=== PATIENT | male | born 1965 | race Two or more races ===

== ENCOUNTER → 2018-03-04 06:48 | Outpatient (CLI) | payer OTHER | END | disposition home or self-care (01) | LOC: RAD 06:48 | DX: M17.11 Unilateral primary osteoarthritis, right knee (principal); M17.12 Unilateral primary osteoarthritis, left knee ==

== ENCOUNTER 2018-03-04 08:21 | Outpatient (CLI) | payer OTHER | END 2018-03-04 08:34 | disposition home or self-care (01) | LOC: SONOGRAMA 08:21 | DX: E04.0 Nontoxic diffuse goiter (principal); E04.2 Nontoxic multinodular goiter ==

== ENCOUNTER 2018-04-11 06:44 | Emergency (ER) | payer OTHER ==
[~2018-04-11] VITALS: Ht 177.8 cm; Wt 78.5 kg
== END 2018-04-11 08:39 | disposition home or self-care (01) ==
LOC: ER 06:44
DX: S90.415A Abrasion, left lesser toe(s), initial encounter (principal); W45.8XXA Other foreign body or object entering through skin, initial encounter; Y93.89 Activity, other specified; Y92.098 Other place in other non-institutional residence as the place of occurrence of the external cause; Y99.8 Other external cause status

== ENCOUNTER 2018-09-23 07:18 | Outpatient (CLI) | payer OTHER | END 2018-09-23 07:31 | disposition home or self-care (01) | LOC: SONOGRAMA 07:18 → MAMO-SONO 07:45 | DX: M54.5 Low back pain (principal); E03.8 Other specified hypothyroidism; E55.9 Vitamin D deficiency, unspecified; I10 Essential (primary) hypertension; G62.89 Other specified polyneuropathies; M81.0 Age-related osteoporosis without current pathological fracture; R33.9 Retention of urine, unspecified; N40.1 Benign prostatic hyperplasia with lower urinary tract symptoms ==

== ENCOUNTER → 2018-09-28 | Outpatient (CLI) | payer OTHER | END | disposition home or self-care (01) | LOC: NUCLEAR 13:00 | DX: M81.0 Age-related osteoporosis without current pathological fracture (principal) ==

== ENCOUNTER 2020-03-01 07:12 | Outpatient (CLI) | payer OTHER | END 2020-03-01 07:27 | disposition home or self-care (01) | LOC: SONOGRAMA 07:12 | PROVIDERS: ATTEND Urology | DX: R97.20 Elevated prostate specific antigen [PSA] (principal) ==

== ENCOUNTER 2022-09-04 13:59 | Outpatient (CLI) | payer OTHER | END 2022-09-04 14:18 | disposition home or self-care (01) | LOC: TOM 13:59 | PROVIDERS: ATTEND Specialist | DX: C61 Malignant neoplasm of prostate (principal) ==

== ENCOUNTER 2022-10-22 08:18 | Outpatient (CLI) | payer OTHER | END 2022-10-22 08:26 | disposition home or self-care (01) | LOC: NUCLEAR 08:18 | PROVIDERS: ATTEND Urology | DX: C61 Malignant neoplasm of prostate (principal) ==

== ENCOUNTER 2023-01-06 14:43 | Emergency (ER) | payer OTHER ==
[~2023-01-06] VITALS: Ht 175.3 cm; Wt 76.2 kg
== END 2023-01-06 21:46 | disposition home or self-care (01) ==
LOC: ER 14:43
DX: C61 Malignant neoplasm of prostate (principal); R31.9 Hematuria, unspecified

== ENCOUNTER 2023-01-10 08:01 | Emergency (ER) | payer OTHER ==
[~2023-01-10] VITALS: Ht 175.3 cm; Wt 76.2 kg
== END 2023-01-10 12:02 | disposition home or self-care (01) ==
LOC: ER 08:01
DX: R31.0 Gross hematuria (principal); N40.0 Benign prostatic hyperplasia without lower urinary tract symptoms

== ENCOUNTER 2023-04-21 07:48 | Emergency (ER) | payer OTHER ==
[~2023-04-21] VITALS: Ht 175.3 cm; Wt 75.7 kg
[2023-04-21] MEDS ORDERED: MEDROLPACK PO (09:37)
== END 2023-04-21 09:52 | disposition home or self-care (01) ==
LOC: ER 07:48
DX: M17.0 Bilateral primary osteoarthritis of knee (principal)

== ENCOUNTER 2023-05-09 17:33 | Outpatient (CLI) | payer OTHER ==
[~2023-05-09 17:33] MED LIST: MEDROLPACK PO
== END 2023-05-09 17:42 | disposition home or self-care (01) ==
LOC: LAB 17:33
PROVIDERS: ATTEND Urology
DX: R97.20 Elevated prostate specific antigen [PSA] (principal)

== ENCOUNTER 2023-05-14 07:23 | Outpatient (CLI) | payer OTHER | END 2023-05-14 08:07 | disposition home or self-care (01) | LOC: SONOGRAMA 07:23 | PROVIDERS: ATTEND Urology | DX: C61 Malignant neoplasm of prostate (principal); D29.1 Benign neoplasm of prostate ==

== ENCOUNTER 2024-02-13 08:23 | Emergency (ER) | payer OTHER ==
[~2024-02-13] VITALS: Ht 177.8 cm; Wt 78.9 kg
[2024-02-13] MEDS ORDERED: TAMSULOSIN HCL0.4 MG PO (08:53)
[2024-02-13] MEDS ORDERED: RAYOS1 MG (08:54)
[2024-02-13] MEDS ORDERED: ZYTIGA250 MG PO (08:54)
[2024-02-13] MEDS ORDERED: LUPRON DEPOT3.75 M1 IM (08:55)
[2024-02-13] MEDS ORDERED: CIALIS5 MG PO (08:55)
== END 2024-02-13 09:46 | disposition home or self-care (01) ==
LOC: ER 08:25
DX: H01.009 Unspecified blepharitis unspecified eye, unspecified eyelid (principal)

== ENCOUNTER 2024-03-17 10:02 | Outpatient (CLI) | payer OTHER ==
[~2024-03-17 10:02] MED LIST changes: +CIALIS5 MG PO; +LUPRON DEPOT3.75 M1 IM; +RAYOS1 MG; +TAMSULOSIN HCL0.4 MG PO; +ZYTIGA250 MG PO
== END 2024-03-17 10:13 | disposition home or self-care (01) ==
LOC: SONOGRAMA 10:02
PROVIDERS: ATTEND Urology
DX: R33.9 Retention of urine, unspecified (principal)

== ENCOUNTER 2024-08-30 07:43 | Emergency (ER) | payer OTHER ==
[~2024-08-30] VITALS: Ht 177.8 cm; Wt 84.8 kg
[2024-08-30] MEDS ORDERED: TETANUS & DIPHTHERIA TOX,ADULT 0.5 ML VIAL IM ONE (08:45)
[2024-08-30] MEDS ORDERED: CEFTRIAXONE SODIUM 1,000 MG VIAL IM ONE (08:45)
[2024-08-30] MEDS ORDERED: AMOX-CLAV 875-1 EACH PO (09:37)
== END 2024-08-30 09:43 | disposition home or self-care (01) ==
LOC: ER 07:44
DX: S61.412A Laceration without foreign body of left hand, initial encounter (principal); W54.0XXA Bitten by dog, initial encounter; Y93.89 Activity, other specified; Y92.89 Other specified places as the place of occurrence of the external cause; Y99.9 Unspecified external cause status

== ENCOUNTER 2024-11-02 09:17 | Emergency (ER) | payer OTHER ==
[~2024-11-02] VITALS: Ht 177.8 cm; Wt 86.2 kg
[~2024-11-02 09:17] MED LIST changes: +AMOX-CLAV 875-1 EACH PO
[2024-11-02] MEDS ORDERED: ABIRATERONE AC250 MG PO (11:05)
[2024-11-02] MEDS ORDERED: ACETAMINOPHEN 500 MG GEL..CAP PO ONE (11:20)
[2024-11-02] MEDS ORDERED: CETIRIZINE HCL 5MG/5ML BLIST.PACK PO ONE ×2 (11:21→11:30)
[2024-11-02] MEDS ORDERED: FAMOTIDINE/PF 20 MG/2 ML VIAL ONE (11:21)
[2024-11-02] MEDS ORDERED: ACETAMINOPHEN 325 MG TABLET PO ONE (11:30)
[2024-11-02] MEDS ORDERED: FAMOtidine 10 MG/ML (4ML VIAL) IV ONE (11:30)
[2024-11-02 12:24] LABS: BASO % 0.2 % (0.1-1.2); EOS # 0.03 (0.04-0.54); EOS % 0.3 % (0.7-7.0); HEMATOCRIT 38.8 % (40.1-51.0); HEMOGLOBIN 13.6 g/dL (13.7-17.5); LYMPH # 0.37 (1.18-3.74); MEAN CORPUSCULAR HEMOGLOBIN 33.2 pg (25.6-32.2); MONO # 0.66 (0.24-0.82); MONO % 7.1 % (4.7-12.5); NEUT # 8.18 (1.56-6.13); NEUT % 88.2 % (34.0-71.1); RED CELL DISTRIBUTION WIDTH 12.3 % (11.6-14.4)
[2024-11-02 12:29] LABS: PLATELET COUNT 116 K/uL (163-369)
[2024-11-02 12:35] LABS: COVID-19 AG POSITIVE (NEGATIVE)
[2024-11-02 12:36] LABS: INFLUENZA A AG NEGATIVE (NEGATIVE); INFLUENZA B AG NEGATIVE (NEGATIVE)
[2024-11-02] MEDS ORDERED: PROTONIX40 MG PO (13:03)
[2024-11-02] MEDS ORDERED: BENZONATATE200 M1 PO (13:03)
== END 2024-11-02 14:37 | disposition home or self-care (01) ==
LOC: ER 09:17
PROVIDERS: General Practice
DX: U07.1 COVID-19 (principal); J00 Acute nasopharyngitis [common cold]

== ENCOUNTER 2025-05-20 08:58 | Emergency (ER) | payer OTHER ==
[~2025-05-20] VITALS: Ht 175.3 cm; Wt 61.2 kg
[~2025-05-20 08:58] MED LIST changes: +ABIRATERONE AC250 MG PO; +BENZONATATE200 M1 PO; +CELEBREX200MG PO; +PROTONIX40 MG PO
[2025-05-20] MEDS ORDERED: GUAIFENESIN/DEXTROMETHORPHAN 100MG/10ML BLIST.PACK PO ONE (09:41)
[2025-05-20] MEDS ORDERED: GUAIFENESIN 100 MG/5 ML BLIST.PACK PO ONE (09:45)
[2025-05-20 11:03] LABS: COVID-19 AG NEGATIVE (NEGATIVE)
== END 2025-05-20 11:40 | disposition home or self-care (01) ==
LOC: ER 08:59
PROVIDERS: Emergency Medicine
DX: J06.9 Acute upper respiratory infection, unspecified (principal); R05.8 Other specified cough; Z20.822 Contact with and (suspected) exposure to COVID-19

== ENCOUNTER → 2025-05-30 | Emergency (ER) | payer OTHER ==
[~2025-05-30] VITALS: Ht 177.8 cm; Wt 88.0 kg
[~2025-05-30] MED LIST changes: +AZITHROMYCIN500 MG PO; +LEVALBUTER0.63 MG/3 IH; +PEPCID AC20 MG PO
[2025-05-30 12:08] VITALS: BP 114/83; O2SAT 97
[2025-05-30 17:17] LABS: BASO % 0.4 % (0.1-1.2); EOS # 0.00 (0.04-0.54); EOS % 0.0 % (0.7-7.0); LYMPH # 0.49 (1.18-3.74); LYMPH % 10.6 % (19.3-53.1); MEAN PLATELET VOLUME 10.50 fl (9.4-12.4); MONO # 0.25 (0.24-0.82); MONO % 5.4 % (4.7-12.5); NEUT # 3.84 (1.56-6.13); NEUT % 83.0 % (34.0-71.1); RED CELL DISTRIBUTION WIDTH 12.7 % (11.6-14.4)
[2025-05-30 17:38] LABS: BUN CREA RATIO 11.0 (7.0-25.0); CREATININE SERUM 1.02 mg/dL (0.70-1.30); GFR 74.25; GLUCOSE FASTING 141.0 mg/dL (65-100); OSMOLALITY SERUM 279.0 MOSM/KG (275-295)
[2025-05-30 18:46] LABS: URINE APPEARANCE Clear; URINE BILIRRUBIN Negative (NEGATIVE); URINE BLOOD Negative; URINE COLOR Yellow; URINE GLUCOSE Negative (NEGATIVE); URINE KETONE Negative (NEGATIVE); URINE LEUKOCYTE Negative; URINE NITRATE Negative; URINE PROTEIN Negative (NEGATIVE); URINE UROBILINOGEN 1.0 E.U./dl
[2025-05-30 18:50] LABS: URINE BACTERIA 8.0 uL (0.0-1933); URINE EPITHELIAL CELLS 2.4 uL (0.0-38.8); URINE RBC 6.7 uL (0.0-20.8); URINE WBC 3.0 uL (0.0-23.2)
[2025-05-30 19:15] LABS: URINE CAST 0.00 uL (0.0-1.40)
[2025-05-30 19:16] LABS: COVID-19 AG NEGATIVE (NEGATIVE)
== END | disposition home or self-care (01) ==
LOC: ER 10:06
PROVIDERS: General Practice
DX: J98.8 Other specified respiratory disorders (principal); Z20.822 Contact with and (suspected) exposure to COVID-19; Z85.46 Personal history of malignant neoplasm of prostate